=== PATIENT | male | born 2000 | race African-American/Black ===

== ENCOUNTER 2021-01-06 21:50 | Emergency (ER) | payer MEDICAID, SELFPAY ==
[2021-01-06 21:51] VITALS: BP 147/110; PULSE 64; RESP 16; TEMP 36.9; O2SAT 99; BMI 25.8
--- NOTE | 2021-01-06 23:17 | EX.ED.DYSGE1 ---
HPI History of Present Illness Chief Complaint: General Illness Informant: patient Narrative Narrative: 20-year-old male presents the emergency room stating that he does not feel well. Patient states that a few days ago he woke with a sore throat. Last night he went to bed around 0300 hrs. woke at approximately 1130 hrs. He states that he felt very poorly and so he went back to bed until approximately 1730 hrs. He states that he woke up again felt poorly and lay back down. He came to the emergency department. He notes normal bowel movements. No runny nose or cough. He notes some slight abdominal discomfort particularly on the left upper quadrant. He denies any diarrhea or urinary symptoms. No rashes. Patient denies any cough. He does note a headache which she notes is generalized. No light sensitivity or pain in the neck. PFSH PFSH Home Medications NK 01/06/21 [History Last Taken Unknown] Allergy/AdvReac Type Severity Reaction Status Date / Time No Known Allergies Allergy Verified 01/06/21 21:53 Surgical History H/O hand surgery Social History (Updated 01/06/21 @ 23:[address] Winsotn Strange, DO) Smoking Status: Unknown if ever smoked substance use type: does not use ROS ROS ED Constitutional Constitutional ED: Reports chills and sweats; Denies weight loss Eyes Eyes: Denies change in vision or diplopia ENT ENT ED: Denies ear pain, rhinorrhea or sore throat Cardiovascular Cardiovascular: Denies chest pain, orthopnea, palpitations or racing heartbeat Respiratory/Chest Respiratory/Chest: Denies cough, dyspnea or orthopnea Gastrointestinal Gastrointestinal: Reports abdominal pain; Denies diarrhea, nausea or vomiting Genitourinary Genitourinary ED: Denies dysuria, hematuria or urinary frequency Musculoskeletal Musculoskeletal: Denies arthralgias or myalgias Integumentary Denies abscess or rash Neurologic Neurologic: Reports headache(s); Denies weakness Psychiatric Psychiatric: Denies anxiety, depression, suicidal ideation or suicidal thoughts Endocrine Endocrinology: Denies polydipsia, polyphagia or polyuria Allergic/Immunologic Allergic/Immunologic ED: Denies mouth swelling, tongue swelling or urticaria EXAM Physical Exam Const Vital Signs: 01/06/21 21:51 01/06/21 23:32 Temperature 98.5 F Temperature Source Temporal Pulse Rate 64 Respiratory Rate 16 Respiratory Effort Normal Non-Labored Blood Pressure 147/110 H Blood Pressure Mean 122 Pulse Ox 99 Oxygen Delivery Method Room Air Positive well nourished and well developed General Appearance ED: well developed HEENT Reports normocephalic, head/scalp atraumatic and moist mucous membranes Eyes PERRL and EOMs intact bilaterally Neck no lymphadenopathy, supple and no JVD Resp normal respiratory effort and clear to auscultation bilaterally Cardio regular rate, regular rhythm and no murmurs GI normal to inspection, nondistended, normoactive bowel sounds and non-tender Palpation: soft Back/Spine no CVA tenderness and normal ROM Extremity normal to inspection General Extremety ED: Negative for edema General Extremity: Negative for edema Neuro oriented x3 and CN's II-XII intact bilaterally Sensorium / Orientation: alert Motor Exam: strength 5/5 throughout Psych mental status grossly normal Mood & Affect: Negative for depressed or tearful Skin no rashes or lesions noted and no wounds MDM MDM MDM Narrative Medical decision making narrative: White blood cell count 11.4. CMP essentially negative. My interpretation of the chest x-ray is no acute process. Covid test is negative. Patient received a dose of Toradol. Lab Data Attestation: I reviewed the patient's lab results. Labs: Laboratory Results - last 24 hr 01/06/21 01/06/21 23:30 23:30 WBC 11.4 H RBC 5.72 Hgb 17.8 H Hct 52.9 MCV 92.5 MCH 31.1 MCHC 33.6 RDW Std Deviation 41.2 RDW Coeff of [place] 12.0 Plt Count 341 MPV 9.5 Immature Gran % (Auto) 0.400 Neut % (Auto) 63.3 Lymph % (Auto) 26.1 [place] % (Auto) 9.0 Eos % (Auto) 0.8 Baso % (Auto) 0.4 Absolute Neuts (auto) 7.2 Absolute Lymphs (auto) 2.97 Nucleated RBC % 0 Sodium 139 Potassium 3.9 Chloride 107 Carbon Dioxide 30.0 Anion Gap 2 L BUN 11 Creatinine 0.89 Estim Creat Clear Calc 119.48 Est GFR (MDRD) Af Amer 140 Est GFR (MDRD) Non-Af 115 BUN/Creatinine Ratio 12.4 Glucose 86 Calcium 9.5 Total Bilirubin 0.80 AST 25 ALT 50 Alkaline Phosphatase 76 Total Protein 8.3 H Albumin 4.4 Globulin 3.9 Albumin/Globulin Ratio 1.1 Radiography Diagnostic Testing: Radiology Impression Chest X-Ray 01/06/21 23:50 IMPRESSION: Normal x-ray examination of the chest. Electronically Signed: Katy Hope MD at 0:48 EDT Tel , Service support , Discharge Plan Triage Chief Complaint: General Illness ED Provider: Winston Strange Dx/Rx/DC Orders Clinical Impression: Acute viral syndrome Prescriptions: No Action NK RF: 0 Primary Care Provider: Ramos Chowdhury Referrals: Ramos Chowdhury MD [Primary Care Provider] - As Needed Disposition Disposition: Home, Self Care
[2021-01-06 23:37] LABS: Absolute Lymphocyte Count 2.97 X10^3/uL (0.83-4.51); Absolute Neutrophil Count 7.2 X10^3/uL (2.0-7.7); Basophil# 0.05 X10^3/uL; Basophil% 0.4 % (0-1); Eosinophil# 0.09 X10^3/uL; Eosinophils% 0.8 % (0-5); Hematocrit 52.9 % (40-54); Hemoglobin 17.8 g/dL (13.0-16.5); Lymphocyte # 2.97 X10^3/ul (0.83-4.51); Lymphocyte % 26.1 % (19-41); Mean Corp Hgb Conc 33.6 g/dL (32-36); Mean Corpuscular Hgb 31.1 pg (27.0-32.0); Mean Corpuscular Volume 92.5 fL (80-94); Mean Platelet Vol. 9.5 fl (6.2-12.0); Monocyte# 1.03 X10^3/uL; NRBC Flagged by Analyzer 0 % (0-5); Neutrophil % 63.3 % (47-70); Platelet Count 341 K/mm3 (150-450); RBC Distribution Width SD 41.2 fl (35.1-43.9); Red Blood Count 5.72 M/mm3 (4.6-6.2); White Blood Count 11.4 K/mm3 (4.4-11.0)
--- NOTE | 2021-01-06 23:50 | RAD_ITS ---
STUDY: X-RAY CHEST REASON FOR EXAM: Male, 20 years old. dyspnea TECHNIQUE: Single AP portable view of the chest. COMPARISON: None. FINDINGS: The lungs are clear and expanded. There is no demonstrated pleural abnormality. Normal size heart. Normal mediastinum and juno. Normal visualized pulmonary arteries. Normal visualized aortic arch and descending thoracic aorta. Normal visualized thoracic spine. Normal visualized ribs, clavicles, and shoulders. There is no demonstrated abnormality of the visualized soft tissue structures of the upper abdomen. RAD/Chest 1 View (Portable) IMPRESSION: Normal x-ray examination of the chest. Electronically Signed: Katy Hope MD at 0:48 EDT Tel , Service support ,
[2021-01-06 23:54] LABS: ALB/GLOB Ratio 1.1 RATIO (0.9-2.4); AST(SGOT) 25 U/L (15-37); Alanine Aminotransfer ALT/SGPT 50 U/L (16-61); Albumin, Serum 4.4 g/dL (3.2-5.0); Alkaline Phosphatase 76 U/L (45-117); Anion Gap 2 (5-15); BUN 11 mg/dL (7-18); BUN/Creat Ratio 12.4 RATIO (10-20); Calcium,Total 9.5 mg/dL (8.5-10.1); Chloride 107 mmol/L (98-107); Creatinine, Serum 0.89 mg/dL (0.70-1.30); EST Glomerular Filtration Rate 115 mL/min (>60); Est Glom Filt Rate - Afr Amer 140 mL/min (>60); Estimated Creatinine Clearance 119.48 ml/min; Globulin 3.9 g/dL (2.2-4.2); Glucose 86 mg/dL (74-106); Potassium 3.9 mmol/L (3.5-5.1); Protein, Total 8.3 g/dL (6.4-8.2); Sodium Level 139 mmol/L (136-145)
[2021-01-07] MEDS: Ketorolac 30 MG/ML Syringe IV (00:36)
== END 2021-01-07 00:59 | disposition home or self-care (01) ==
PROVIDERS: Emergency Provider Emergency Medicine; PCP Pediatrics
DX: B34.9 Viral infection, unspecified (principal)
CPT/HCPCS: 71045; 80053; 85025; 87426; 96374; 99283; A4216

== ENCOUNTER 2021-02-04 22:46 | Observation (INO) | payer MEDICAID, SELFPAY ==
[2021-02-04 22:46] VITALS: BP 148/81; PULSE 99; RESP 16; TEMP 36.8; O2SAT 98; BMI 25.8
[2021-02-04 23:32] LABS: Absolute Lymphocyte Count 3.77 X10^3/uL (0.83-4.51); Absolute Neutrophil Count 4.1 X10^3/uL (2.0-7.7); Basophil# 0.04 X10^3/uL; Basophil% 0.4 % (0-1); Eosinophil# 0.07 X10^3/uL; Eosinophils% 0.8 % (0-5); Hematocrit 47.1 % (40-54); Hemoglobin 16.2 g/dL (13.0-16.5); Lymphocyte # 3.77 X10^3/ul (0.83-4.51); Lymphocyte % 42.2 % (19-41); Mean Corp Hgb Conc 34.4 g/dL (32-36); Mean Corpuscular Hgb 31.6 pg (27.0-32.0); Mean Platelet Vol. 9.4 fl (6.2-12.0); Monocyte# 0.87 X10^3/uL; Monocyte% 9.7 % (0-10); NRBC Flagged by Analyzer 0 % (0-5); Platelet Count 327 K/mm3 (150-450); Red Blood Count 5.12 M/mm3 (4.6-6.2); White Blood Count 8.9 K/mm3 (4.4-11.0)
[2021-02-04 23:47] LABS: ALB/GLOB Ratio 1.2 RATIO (0.9-2.4); AST(SGOT) 20 U/L (15-37); Alanine Aminotransfer ALT/SGPT 35 U/L (16-61); Albumin, Serum 4.1 g/dL (3.2-5.0); Alkaline Phosphatase 68 U/L (45-117); Anion Gap 7 (5-15); BUN 8 mg/dL (7-18); Calcium,Total 9.1 mg/dL (8.5-10.1); Chloride 106 mmol/L (98-107); Creatinine, Serum 1.14 mg/dL (0.70-1.30); EST Glomerular Filtration Rate 87 mL/min (>60); Est Glom Filt Rate - Afr Amer 105 mL/min (>60); Estimated Creatinine Clearance 93.27 ml/min; Globulin 3.5 g/dL (2.2-4.2); Glucose 106 mg/dL (74-106); Potassium 3.7 mmol/L (3.5-5.1); Protein, Total 7.6 g/dL (6.4-8.2); Sodium Level 143 mmol/L (136-145)
--- NOTE | 2021-02-05 | EDS_ITS ---
HPI History of Present Illness Chief Complaint: Substance Abuse Narrative Narrative: Patient states for the last 4-5 months he has been drinking large amount of alcohol daily and wants to stop, asking for detox. He states he has been drinking about a half a pint of liquor in addition to 5 beers or so daily. He has been working night shifts, so he gets home starts drinking. When he wakes up he sometimes has headaches and feels poorly and starts drinking again. He does not use any other illicit substances except for THC, and he is a heavy smoker. PFSH PFSH Medical History no medical history no medical history Home Medications NK 01/06/21 [History Last Taken Unknown] Allergy/AdvReac Type Severity Reaction Status Date / Time No Known Allergies Allergy Verified 02/04/21 22:49 Family History (Updated 02/05/21 @ 00:[address] Marco Leone MD) Other Alcoholism Heart disease Hypertension Surgical History H/O hand surgery Social History Smoking Status: Current every day smoker alcohol intake: current alcohol intake frequency: 3 or more drinks per day substance use type: does not use ROS ROS ED Constitutional Constitutional ED: Denies chills or fever(s) Eyes Eyes: Denies change in vision or diplopia ENT ENT ED: Denies rhinorrhea or sore throat Cardiovascular Cardiovascular: Denies chest pain or palpitations Respiratory/Chest Respiratory/Chest: Denies cough or dyspnea Gastrointestinal Gastrointestinal: Denies abdominal pain, diarrhea, nausea or vomiting Genitourinary Genitourinary ED: Denies dysuria or hematuria Musculoskeletal Musculoskeletal: Denies back pain or neck pain Integumentary Denies abscess or rash Neurologic Neurologic: Denies headache(s), paresthesias or weakness Psychiatric Psychiatric: Denies anxiety or suicidal thoughts EXAM Physical Exam Const Vital Signs: 02/04/21 22:46 02/05/21 00:12 02/05/21 00:13 Temperature 98.2 F Temperature Source Temporal Pulse Rate 99 88 Respiratory Rate 16 17 Blood Pressure 148/81 H Blood Pressure Mean 103 Pulse Ox 98 Oxygen Delivery Method Room Air Positive well nourished and well developed General Appearance ED: well developed and NAD HEENT Reports moist mucous membranes normocephalic and atraumatic Eyes PERRL and EOMs intact bilaterally Neck full ROM and supple Resp normal respiratory effort and clear to auscultation bilaterally Cardio regular rate, regular rhythm and no murmurs GI non-tender and non-distended Auscultation: normoactive bowel sounds Palpation: soft Back/Spine no CVA tenderness General Back: other FROM Extremity normal to inspection General Extremety ED: Negative for edema, pulses abnormal or tenderness General Extremity: Negative for edema or pulses abnormal Neuro oriented x3, CN's II-XII intact bilaterally and no sensory deficits noted Sensorium / Orientation: awake and alert Motor Exam: strength 5/5 throughout Skin no rashes or lesions noted and no wounds MDM MDM MDM Narrative Medical decision making narrative: Patient medically stable and cleared. Alcohol 61. Not in withdrawal currently. Will discuss with hospitalist for detox program admission. Lab Data Attestation: I reviewed the patient's lab results. Labs: Laboratory Results - last 24 hr 02/04/21 02/04/21 02/04/21 23:15 23:15 23:15 WBC 8.9 RBC 5.12 Hgb 16.2 Hct 47.1 MCV 92.0 MCH 31.6 MCHC 34.4 RDW Std Deviation 41.0 RDW Coeff of [place] 12.0 Plt Count 327 MPV 9.4 Immature Gran % (Auto) 0.900 Neut % (Auto) 46.0 L Lymph % (Auto) 42.2 H [place] % (Auto) 9.7 Eos % (Auto) 0.8 Baso % (Auto) 0.4 Absolute Neuts (auto) 4.1 Absolute Lymphs (auto) 3.77 Nucleated RBC % 0 Sodium 143 Potassium 3.7 Chloride 106 Carbon Dioxide 30.0 Anion Gap 7 BUN 8 Creatinine 1.14 Estim Creat Clear Calc 93.27 Est GFR (MDRD) Af Amer 105 Est GFR (MDRD) Non-Af 87 BUN/Creatinine Ratio 7.0 L Glucose 106 Calcium 9.1 Total Bilirubin 0.50 AST 20 ALT 35 Alkaline Phosphatase 68 Total Protein 7.6 Albumin 4.1 Globulin 3.5 Albumin/Globulin Ratio 1.2 Urine Opiates Screen Urine Methadone Screen Ur Barbiturates Screen Ur Phencyclidine Scrn Ur Amphetamines Screen U Methamphetamin-MDMA U Benzodiazepines Scrn Urine Cocaine Screen U Cannabinoids Screen Ur Drug Screen Comment Ethyl Alcohol 61.0 02/04/21 23:32 WBC RBC Hgb Hct MCV MCH MCHC RDW Std Deviation RDW Coeff of [place] Plt Count MPV Immature Gran % (Auto) Neut % (Auto) Lymph % (Auto) [place] % (Auto) Eos % (Auto) Baso % (Auto) Absolute Neuts (auto) Absolute Lymphs (auto) Nucleated RBC % Sodium Potassium Chloride Carbon Dioxide Anion Gap BUN Creatinine Estim Creat Clear Calc Est GFR (MDRD) Af Amer Est GFR (MDRD) Non-Af BUN/Creatinine Ratio Glucose Calcium Total Bilirubin AST ALT Alkaline Phosphatase Total Protein Albumin Globulin Albumin/Globulin Ratio Urine Opiates Screen NEGATIVE Urine Methadone Screen NEGATIVE Ur Barbiturates Screen NEGATIVE Ur Phencyclidine Scrn NEGATIVE Ur Amphetamines Screen NEGATIVE U Methamphetamin-MDMA NEGATIVE U Benzodiazepines Scrn NEGATIVE Urine Cocaine Screen NEGATIVE U Cannabinoids Screen POSITIVE H Ur Drug Screen Comment Ethyl Alcohol Discharge Plan Dx/Rx/DC Orders Clinical Impression: Alcohol dependence Disposition Disposition: Acute Care Hospital [facility]
--- NOTE | 2021-02-05 00:06 | HP.PCM.HOS_ITS ---
[facility] - General General Date of Admission: 02/05/21 Date of Service: 02/05/21 Chief Complaint: Alcoholism HPI Narrative ADEN KOCH, is a 20 M with a significant history of alcoholism who presents to the emergency department for help with alcohol detoxification. Patient reports drinking since 5 months ago. He drinks daily. He drinks about 4-5 beers; and half a pint of liquor daily. Last time he drank was about 5 to 6 hours prior to presentation. He denied any withdrawal symptoms at the time of presentation. [facility] Medical History no medical history no medical history Home Medications NK 01/06/21 [History Last Taken Unknown] Allergy/AdvReac Type Severity Reaction Status Date / Time No Known Allergies Allergy Verified 02/04/21 22:49 Family History (Updated 02/05/21 @ 00:[address] Marco Leone MD) Other Alcoholism Heart disease Hypertension Surgical History H/O hand surgery Social History Smoking Status: Current every day smoker tobacco type: cigarettes alcohol intake: current alcohol intake frequency: 3 or more drinks per day substance use type: does not use ROS ROS Narrative Constitutional: Denies fever, chills, fatigue, anorexia and change in weight Eyes: Denies blurry vision, change in eye color, change in vision, discharge from eye(s), double vision, erythema, eye pain, loss of vision or other HEENT: Denies abnormal hearing, dysphagia, ear pain, epistaxis, headache(s), hearing loss, nasal congestion, nasal discharge, post nasal drip, sinus pressure, sore throat or other Cardiovascular: Denies chest pain or palpitations. Denies dyspnea on exertion, orthopnea and paroxysmal nocturnal dyspnea Respiratory/Chest: Denies cough, excessive phlegm production, shortness of breath with exertion and wheezing Gastrointestinal: Denies abdominal pain, coffee ground emesis, constipation, benjamin rrhea, dyspepsia, hematemesis, hematochezia, loose stools, melena, nausea, vomiting or other Genitourinary: Denies burning urination, difficulty urinating, dysuria, hematuria, nocturia, urinary frequency, urinary hesitancy, urinary incontinence, urinary urgency or other Musculoskeletal: Denies arthralgias, back pain, joint pain, joint stiffness, joint swelling, myalgias, neck pain or other Neurologic: Denies abnormal gait, abnormal speech, confusion, disequilibrium, dizziness, focal weakness, headache(s), numbness, paresthesias, seizure-like activity, seizures, syncope, tingling, tremor(s) or other Psychiatric: Denies anxiety, depression, homicidal ideation, suicidal ideation or other Endocrinology: Denies change in body appearance, cold intolerance, excessive sweating, heat intolerance, polydipsia, polyuria or other Hematologic/Lymphatic: Denies anemia, easy bleeding, easy bruising, lymphadenopathy or other Integumentary: Denies rashes Allergic/Immunologic: Denies rhinitis, hives, eczema, asthma or other Vital Signs Vital Signs Vital Signs: 02/04/21 22:46 Temperature 98.2 F Temperature Source Temporal Pulse Rate 99 Respiratory Rate 16 Blood Pressure 148/81 H Blood Pressure Mean 103 Pulse Ox 98 Oxygen Delivery Method Room Air Weight Weight: 72.575 kg Body Mass Index (BMI) 25.8 Physical Exam Narrative Physical exam: General: Well-nourished, well-developed. Head: Normocephalic, atraumatic, no tenderness Eyes: PERRLA, EOMI ENT, no trauma, moist mucous membranes, no rhinorrhea Neck: Nontender, full range of motion, no spinal tenderness, deformities, step- off CVS: Regular rate and rhythm. S1-S2 present. No murmur, gallop or rub. Respiratory : clear to auscultation bilaterally, chest wall nontender, no wheezing Abdomen: Soft, nontender, nondistended, normal bowel sounds, no masses : Deferred Back: Nontender, no CVA tenderness, no midline spinal tenderness, deformities, step-offs Extremities: Nontender full range of motion, no trauma Skin: Normal color, no trauma, abrasions Neuro: Alert, oriented, cranial nerves II through XII grossly intact. Psychiatry: Normal mood. Normal affect. Not depressed. Not anxious. Results Lab / Micro Data Result Diagrams: 02/04/21 23:15 02/04/21 23:15 Labs: Laboratory Results - last 24 hr 02/04/21 23:15: WBC 8.9, RBC 5.12, Hgb 16.2, Hct 47.1, MCV 92.0, MCH 31.6, MCHC 34.4, RDW Std Deviation 41.0, RDW Coeff of [place] 12.0, Plt Count 327, MPV 9.4, Immature Gran % (Auto) 0.900, Neut % (Auto) 46.0 L, Lymph % (Auto) 42.2 H, [place] % (Auto) 9.7, Eos % (Auto) 0.8, Baso % (Auto) 0.4, Absolute Neuts (auto) 4.1, Absolute Lymphs (auto) 3.77, Nucleated RBC % 0 02/04/21 23:15: Sodium 143, Potassium 3.7, Chloride 106, Carbon Dioxide 30.0, Anion Gap 7, BUN 8, Creatinine 1.14, Estim Creat Clear Calc 93.27, Est GFR (MDRD) Af Amer 105, Est GFR (MDRD) Non-Af 87, BUN/Creatinine Ratio 7.0 L, Glucose 106, Calcium 9.1, Total Bilirubin 0.50, AST 20, ALT 35, Alkaline Phosphatase 68, Total Protein 7.6, Albumin 4.1, Globulin 3.5, Albumin/Globulin Ratio 1.2 02/04/21 23:15: Ethyl Alcohol 61.0 02/04/21 23:32: Ur Drug Screen Comment Assessment & Plan Assessment/Plan (1) Desire for detoxification: (2) Alcohol dependence: QUALIFIERS: Substance use status: uncomplicated Qualified Code(s): F10.20 - Alcohol dependence, uncomplicated PLAN: The patient is a 20 year old M with a significant history of alcoholism; tobacco abuse and marijuana abuse who presents to the emergency department for help with alcohol detoxification Alcohol dependence and desire for detoxification Review of emergency department labs showed alcohol level of 61. Liver enzymes are unremarkable. Patient will be started on phenobarbital and other adjunctive medications: Gabapentin as needed; dicyclomine as needed; Vistaril as needed; Imodium as needed; trazodone as needed; Zofran as needed; scheduled thiamine; and schedule folic acid. Monitor CIWA score Tobacco abuse Counseled Nicotine patch prescribed. Marijuana abuse Toxicology was positive for cannabinoids. Counselled. DVT prophylaxis Low risk Encourage to ambulate Charges/Coding Visit Charges Inpatient E&M: 14297 Init Hosp L2
[2021-02-05 00:07] LABS: Amphetamine Urine VISTA NEGATIVE (<1000 ng/mL); Barbiturate Urine VISTA NEGATIVE (< 200 ng/mL); Benzodiazepine Urine VISTA NEGATIVE (< 200 ng/mL); Cocaine Urine VISTA NEGATIVE (< 300 ng/mL); Ecstacy Urine VISTA NEGATIVE (< 500 ng/mL); Methadone Urine VISTA NEGATIVE (< 300 ng/mL); PCP Urine VISTA NEGATIVE (< 25 ng/mL); THC Urine VISTA POSITIVE (< 50 ng/mL); Vista UDS pH Range 7
[2021-02-05 00:12] VITALS: RESP 17
[2021-02-05 00:13] VITALS: PULSE 88
[2021-02-05 00:25] VITALS: BP 132/78; PULSE 80; RESP 17; TEMP 36.7; O2SAT 98
[2021-02-05] MEDS: Phenobarbital 32.4 MG Tablet 64.8 MG PO ×6 (01:31→20:39)
[2021-02-05 05:43] VITALS: BMI 25.8
--- NOTE | 2021-02-05 06:56 | PCS.PANDOC ---
PANDEMIC DOCUMENTATION INITIATED: Date: 02/05/2021 Time:
--- NOTE | 2021-02-05 09:42 | ADDICTION ---
This service writer met with PT to conduct ASAM, MSE, AUDIT assessments and to plan for d/c. PT A+Ox4 and participated actively. All assessments completed, faxed to [facility] and placed in PT's chart. PT plans to f/u with individual counselor at [facility] for follow-up counseling services. PT did not indicate a need for transportation post d/c from [facility].
[2021-02-05] MEDS: Thiamine Hydrochloride 100 MG Tablet PO (10:09)
[2021-02-05] MEDS: Folic Acid 1 MG Tablet PO (10:09)
--- NOTE | 2021-02-05 13:36 | PCM.PN.HOSP ---
Subjective Subjective Feeling ok today. Denies any complaints at present. Objective Data Objective Data Vital Signs: Vital Signs Temp Pulse Resp BP Pulse Ox 36.7 C 80 17 132/78 H 98 02/05/21 00:25 02/05/21 00:25 02/05/21 00:25 02/05/21 00:25 02/05/21 00:25 Oxygen Delivery Method Room Air Weight: 72.575 kg Body Mass Index (BMI) 25.8 Lab / Micro Data Result Diagrams: 02/04/21 23:15 02/04/21 23:15 Labs: Laboratory Results - last 24 hr 02/04/21 23:15: WBC 8.9, RBC 5.12, Hgb 16.2, Hct 47.1, MCV 92.0, MCH 31.6, MCHC 34.4, RDW Std Deviation 41.0, RDW Coeff of [place] 12.0, Plt Count 327, MPV 9.4, Immature Gran % (Auto) 0.900, Neut % (Auto) 46.0 L, Lymph % (Auto) 42.2 H, [place] % (Auto) 9.7, Eos % (Auto) 0.8, Baso % (Auto) 0.4, Absolute Neuts (auto) 4.1, Absolute Lymphs (auto) 3.77, Nucleated RBC % 0 02/04/21 23:15: Sodium 143, Potassium 3.7, Chloride 106, Carbon Dioxide 30.0, Anion Gap 7, BUN 8, Creatinine 1.14, Estim Creat Clear Calc 93.27, Est GFR (MDRD) Af Amer 105, Est GFR (MDRD) Non-Af 87, BUN/Creatinine Ratio 7.0 L, Glucose 106, Calcium 9.1, Total Bilirubin 0.50, AST 20, ALT 35, Alkaline Phosphatase 68, Total Protein 7.6, Albumin 4.1, Globulin 3.5, Albumin/Globulin Ratio 1.2 02/04/21 23:15: Ethyl Alcohol 61.0 02/04/21 23:32: Urine Opiates Screen NEGATIVE, Urine Methadone Screen NEGATIVE, Ur Barbiturates Screen NEGATIVE, Ur Phencyclidine Scrn NEGATIVE, Ur Amphetamines Screen NEGATIVE, U Methamphetamin-MDMA NEGATIVE, U Benzodiazepines Scrn NEGATIVE, Urine Cocaine Screen NEGATIVE, U Cannabinoids Screen POSITIVE H, Ur Drug Screen Comment Physical Exam Const alert Constitutional Narrative: in bed. NAD. Resp normal respiratory effort, no retractions and no use of accessory muscles Cardio regular rate, regular rhythm, S1 normal heart sound and S2 normal heart sound GI normal to inspection, nondistended, normoactive bowel sounds, soft to palpation, non-tender and non-distended Assessment & Plan Assessment/Plan (1) Desire for detoxification: (2) Alcohol dependence: QUALIFIERS: Substance use status: uncomplicated Qualified Code(s): F10.20 - Alcohol dependence, uncomplicated PLAN: The patient is a 20 year old M with a significant history of alcoholism; tobacco abuse and marijuana abuse who presents to the emergency department for help with alcohol detoxification 1. Alcohol dependence and desire for detoxification Review of emergency department labs showed alcohol level of 61. Liver enzymes are unremarkable. Patient will be started on phenobarbital and other adjunctive medications: Gabapentin as needed; dicyclomine as needed; Vistaril as needed; Imodium as needed; trazodone as needed; Zofran as needed; scheduled thiamine; and schedule folic acid. Monitor CIWA score Appears well today. If no further events and continues to feel well, could anticipate dischage as soon as 02/06 Pt to follow up with counselor with [facility]. 2. Tobacco abuse Counseled Nicotine patch prescribed. 3. Marijuana abuse Toxicology was positive for cannabinoids. Counselled. 4. DVT prophylaxis Low risk Encourage to ambulate Charges/Coding Procedures Hospitalists Procedures: Other Procedure - See Report (non billable rounding. as pt admitted after midnight. )
--- NOTE | 2021-02-05 14:14 | CHAPLAIN ---
Type of Pastoral Visit _x__ Initial Visit ___ Follow-up Visit ___ On-call Visit ___ General Patient Visit ___ Spiritual Assessment ___ Family Conference ___ Bereavement ___ Rapid Response ___ Code Blue ___ Other (describe below) Pastoral Care Referral From _x__ Patient ___ Family ___ Nurse ___ Physician ___ Thermal Surfacing Machine Operator ___ Executive Search Consultant ___ Other (describe below) Sacrament/Intervention ___ Active listening ___ Anointing ___ Synagogue ___ Bereavement ___ Communion ___ Leanne exploration ___ ___ Life review ___ Prayer ___ Reconciliation ___ Sacrament of Sick _x__ Supportive presence ___ Wedding ___ Other (describe below) Pastoral Comments patient is awake but describes not feeling well enough or clear minded enough to carry on a conversation; pt would welcome a follow up another day
[2021-02-05 16:12] VITALS: BP 143/85; PULSE 64; RESP 16; TEMP 36.8; O2SAT 98
[2021-02-05 20:34] VITALS: BP 127/80; PULSE 63; RESP 16; TEMP 37.3; O2SAT 100
[2021-02-06 01:48] VITALS: BP 105/56; PULSE 70; RESP 16; TEMP 36.3; O2SAT 100
[2021-02-06] MEDS: Phenobarbital 32.4 MG Tablet 64.8 MG PO ×3 (01:51→09:23)
[2021-02-06 05:39] VITALS: BP 138/84; PULSE 64; RESP 16; TEMP 37; O2SAT 100
[2021-02-06] MEDS: Thiamine Hydrochloride 100 MG Tablet PO (09:23)
[2021-02-06] MEDS: Folic Acid 1 MG Tablet PO (09:23)
[2021-02-06 09:28] VITALS: BP 128/79; PULSE 68; RESP 16; TEMP 36.8; O2SAT 98
--- NOTE | 2021-02-06 11:34 | ADDICTION ---
This worker met with PT to discuss discharge and follow-up planning.
--- NOTE | 2021-02-06 12:05 | PCM.DC ---
Discharge Instructions Diet Discharge Diet: No restrictions Activity Discharge Activity: Return to Normal Activity Follow Up Care Please Follow Up With: Barbara When: next week Test Results: Test results from this visit will be discussed in further detail at your follow-up appointment, if applicable. Discharge Plan Admission Admit Date/Time: 02/05/21 00:03 Primary Reason for Your Visit: alcohol withdrawal Attending Provider: Yimi Noonan Primary Care Provider: Ramos Chowdhury Discharge Orders/Prescriptions Prescriptions: New multivitamin Tablet 1 tab PO DAILY Qty: 1 RF: 0 Referrals / Follow Up: Ramos Chowdhury MD [Primary Care Provider] - Disposition Disposition (needs filled in before D/C Order can be placed): Home, Self Care
--- NOTE | 2021-02-06 12:06 | DS.PCM_ITS ---
Providers Date of Admission: 02/05/21 Primary Care Physician: Dr. Ramos Chowdhury MD Reason For Visit: ALCOHOL DETOXIFICATION Diagnosis Discharge Diagnosis (1) Desire for detoxification: Status: Acute (2) Alcohol dependence: Status: Acute Code(s): F10.20 - Alcohol dependence, uncomplicated Qualifiers: Substance use status: uncomplicated Qualified Code(s): F10.20 - Alcohol dependence, uncomplicated Medications at Discharge Home Medications multivitamin 1 tab PO DAILY #1 tab 02/06/21 Hospital Course Operations None Procedures None Summary of Care Provided Minutes Spent on Discharge: 24 Hospital Course: 20-year-old male who drinks beer and liquor presents for acute alcohol detox treatment. Patient was not going through any florid alcohol withdrawal during the course of his hospitalization and has remained stable. Patient was monitored another night and had no further events. Discussed with patient and he is comfortable going home. Plan is for the patient to [facility] Physical Exam Const alert and no apparent distress General Appearance: cooperative and comfortable Weight / BMI Weight Weight: 72.575 kg Body Mass Index (BMI) 25.8 ABG / Lab / Microbiology Data Result Diagrams: 02/04/21 23:15 02/04/21 23:15 D/C Instructions Discharge Diet: No restrictions Please [facility] With[facility] When: next week Meaningful Use Info Meaningful Use Diagnoses (Choose all that apply): None applicable Discharge Plan Admission Admit Date/Time: 02/05/21 00:03 Primary Reason for Your Visit: alcohol withdrawal Attending Provider: Yimi Noonan Primary Care Provider: Ramos Chowdhury Discharge Orders/Prescriptions Prescriptions: New multivitamin Tablet 1 tab PO DAILY Qty: 1 RF: 0 Referrals / Follow Up: Ramos Chowdhury MD [Primary Care Provider] - Disposition Disposition (needs filled in before D/C Order can be placed): Home, Self Care Charges/Coding Visit Charges Inpatient E&M: 73682 Disch Hosp
[2021-02-06 12:35] VITALS: BP 151/77; PULSE 67; RESP 16; TEMP 37; O2SAT 99
== END 2021-02-06 12:40 | disposition home or self-care (01) ==
LOC: ED 02-05 00:03 → MS3 02-05 06:50
PROVIDERS: Admitting Provider Hospitalist; Emergency Provider Emergency Medicine; PCP Pediatrics
DX: F10.20 Alcohol dependence, uncomplicated (principal); F17.210 Nicotine dependence, cigarettes, uncomplicated; Y90.3 Blood alcohol level of 60-79 mg/100 ml; F12.10 Cannabis abuse, uncomplicated
CPT/HCPCS: 80053; 80307; 82077; 85025; 99218; 99283; G0378

== ENCOUNTER 2021-11-13 11:50 | Emergency (ER) | payer OTHER, MEDICAID, SELFPAY ==
--- NOTE | 2021-11-13 11:48 | RAD_ITS ---
STUDY: X-RAY CHEST REASON FOR EXAM: Male, 21 years old. Cough TECHNIQUE: Single AP portable view of the chest. COMPARISON: Comparison is made with prior study dated 01/06/2021. FINDINGS: The lungs are clear and expanded. There is no demonstrated pleural abnormality. Normal size heart. Normal mediastinum and juno. Normal visualized pulmonary arteries. Normal visualized aortic arch and descending thoracic aorta. Normal visualized thoracic spine. Normal visualized ribs, clavicles, and shoulders. There is no demonstrated abnormality of the visualized soft tissue structures of the upper abdomen. RAD/Chest 1 View (Portable) IMPRESSION: Normal x-ray examination of the chest. Electronically Signed: Chance Johnson MD at 14:25 EDT ,
[2021-11-13 11:51] VITALS: BP 134/75; PULSE 109; RESP 18; TEMP 38.8; O2SAT 98; BMI 28.7
--- NOTE | 2021-11-13 13:17 | EX.ED.DYSGE1 ---
HPI History of Present Illness Chief Complaint: General Illness Informant: patient Onset/Context/Timing Onset: Today Context: Sudden Onset Timing: Continuous Quality: Aching Location: Generalized Worsened by: Nothing Relieved by: Nothing Narrative Narrative: Patient presents with body aches that began today. Patient states he woke up around 0400 with generalized body aches. Patient states it began rather suddenly. Patient states nothing makes it better nothing makes it worse. Patient admits to a sore throat and a headache. Patient admits to some subjective chills. Patient denies any cough or shortness of breath. Patient denies any chest pain. Patient states there is a coworker who was recently diagnosed with COVID-19. Prior similar symptoms: No Recent Illness/Hospitalization: No PFSH PFSH Medical History Alcohol abuse Alcohol dependence Home Medications NK 11/13/21 [History Last Taken Unknown] Allergy/AdvReac Type Severity Reaction Status Date / Time No Known Allergies Allergy Verified 11/13/21 11:51 Family History (Updated 02/05/21 @ 00:[address] Marco Leone MD) Other Alcoholism Heart disease Hypertension Surgical History H/O hand surgery Social History Smoking Status: Current every day smoker tobacco type: cigarettes and e-cigarettes alcohol intake: current alcohol intake frequency: 3 or more drinks per day substance use type: does not use ROS ROS ED Constitutional Constitutional ED: Reports chills; Denies fever(s) Eyes Eyes: Denies blurry vision or change in vision ENT ENT ED: Reports sore throat; Denies rhinorrhea Cardiovascular Cardiovascular: Denies chest pain or palpitations Respiratory/Chest Respiratory/Chest: Denies cough or dyspnea Gastrointestinal Gastrointestinal: Denies nausea or vomiting Genitourinary Genitourinary ED: Denies dysuria or hematuria Musculoskeletal Musculoskeletal: Reports back pain and myalgias; Denies neck pain Integumentary Denies abscess or rash Neurologic Neurologic: Reports headache(s); Denies weakness Allergic/Immunologic Allergic/Immunologic ED: Denies mouth swelling or urticaria EXAM Physical Exam Const Vital Signs: 11/13/21 11:51 11/13/21 12:56 11/13/21 13:39 Temperature 101.8 F H Temperature Source Temporal Pulse Rate 109 H 88 Respiratory Rate 18 17 Respiratory Pattern Normal Normal Blood Pressure 134/75 H Blood Pressure Mean 94 Pulse Ox 98 Oxygen Delivery Method Room Air 11/13/21 14:20 Temperature Temperature Source Pulse Rate 95 Respiratory Rate 16 Respiratory Pattern Blood Pressure 124/57 H Blood Pressure Mean 79 Pulse Ox 96 Oxygen Delivery Method Room Air Positive well nourished and well developed General Appearance ED: well developed HEENT Reports moist mucous membranes Neck supple and no JVD Resp normal respiratory effort and clear to auscultation bilaterally Cardio regular rate, regular rhythm and no murmurs GI normal to inspection, nondistended, normoactive bowel sounds and non-tender Palpation: soft Extremity normal to inspection General Extremety ED: Negative for edema or tenderness General Extremity: Negative for edema Neuro oriented x3, CN's II-XII intact bilaterally and no sensory deficits noted Sensorium / Orientation: alert Motor Exam: strength 5/5 throughout Psych mental status grossly normal Skin no rashes or lesions noted MDM MDM MDM Narrative Medical decision making narrative: Patient was given IV fluids. Patient was given Tylenol. Patient was given a DuoNeb aerosol. CBC was within normal limits. Basic metabolic profile shows a mild hypokalemia of 3.2. COVID-19 rapid antigen was obtained and was negative. Influenza A and influenza B swabs were obtained and were negative. Portable 1 view chest x-ray was obtained. On my interpretation, lung delacruz are clear. There is normal cardiac silhouette. Bony thorax is normal. There is no acute process noted. Radiologist also interpreted the x-ray and agrees. Patient was advised of his findings. Patient was advised that this is most likely a viral illness. Patient was instructed to continue Tylenol as needed for any aches or fevers. Patient was instructed to drink plenty of fluids. Patient was instructed to follow-up with his primary care physician in 5 to 7 days. Patient understood and was agreeable with the plan. All questions were answered. Lab Data Attestation: I reviewed the patient's lab results. Labs: Laboratory Results - last 24 hr 11/13/21 11/13/21 13:32 13:32 WBC 9.8 RBC 4.67 Hgb 14.4 Hct 42.2 MCV 90.4 MCH 30.8 MCHC 34.1 RDW Std Deviation 39.2 RDW Coeff of [place] 11.9 Plt Count 293 MPV 9.7 Immature Gran % (Auto) 0.500 Neut % (Auto) 74.3 H Lymph % (Auto) 9.2 L [place] % (Auto) 15.7 H Eos % (Auto) 0.1 Baso % (Auto) 0.2 Absolute Neuts (auto) 7.3 Absolute Lymphs (auto) 0.90 Nucleated RBC % 0 Differential Comment COMMENT Sodium 137 Potassium 3.2 L Chloride 105 Carbon Dioxide 27.0 Anion Gap 5 BUN 9 Creatinine 1.18 Estim Creat Clear Calc 89.36 Est GFR (MDRD) Af Amer 100 Est GFR (MDRD) Non-Af 83 BUN/Creatinine Ratio 7.6 L Glucose 103 Calcium 9.2 Radiography Chest X-Ray - ED: 1 View, Read by ED Physician, Read by Radiologist and Normal Diagnostic Testing: Clinical Impression(s) from Imaging Studies Chest X-Ray 11/13/21 11:48 IMPRESSION: Normal x-ray examination of the chest. Electronically Signed: Chance Johnson MD at 14:25 EDT , Discharge Plan Triage Chief Complaint: General Illness ED Provider: Yimi Leyva Dx/Rx/DC Orders Clinical Impression: Acute viral syndrome, Febrile illness Instructions: ED Viral Syndrome (Adult) Prescriptions: No Action NK Stand Alone Forms: ED Work / School Excuse Primary Care Provider: Ramos Chowdhury Referrals: Ramos Chowdhury MD [Primary Care Provider] - 3-5 Days Disposition Disposition: Home, Self Care
[2021-11-13] MEDS: Acetaminophen 500 MG Tablet 1000 MG PO (13:36)
[2021-11-13] MEDS: 0.9% Normal Saline 1,000 ML 1000 ML IV (13:36)
[2021-11-13] MEDS: Ipratropium/Albuterol Sulfate 3 ML AMPUL.NEB INHALATION (13:37)
[2021-11-13 13:39] VITALS: PULSE 88; RESP 17
[2021-11-13 13:39] LABS: Absolute Neutrophil Count 7.3 X10^3/uL (2.0-7.7); Basophil# 0.02 X10^3/uL; Basophil% 0.2 % (0-1); Eosinophil# 0.01 X10^3/uL; Eosinophils% 0.1 % (0-5); Hematocrit 42.2 % (40-54); Hemoglobin 14.4 g/dL (13.0-16.5); Lymphocyte % 9.2 % (19-41); Mean Corp Hgb Conc 34.1 g/dL (32-36); Mean Corpuscular Hgb 30.8 pg (27.0-32.0); Mean Corpuscular Volume 90.4 fL (80-94); Mean Platelet Vol. 9.7 fl (6.2-12.0); Monocyte# 1.54 X10^3/uL; Monocyte% 15.7 % (0-10); NRBC Flagged by Analyzer 0 % (0-5); Neutrophil # 7.29 X10^3/uL (2.7-7.7); Neutrophil % 74.3 % (47-70); POSITIVE DIFFERENTIAL YES; Platelet Count 293 K/mm3 (150-450); RBC Distribution Width CV 11.9 % (11.6-14.6); RBC Distribution Width SD 39.2 fl (35.1-43.9); Red Blood Count 4.67 M/mm3 (4.6-6.2); White Blood Count 9.8 K/mm3 (4.4-11.0)
[2021-11-13 13:46] LABS: Differential Indicated SCAN CRITERIA MET
[2021-11-13 13:52] LABS: Anion Gap 5 (5-15); BUN 9 mg/dL (7-18); BUN/Creat Ratio 7.6 RATIO (10-20); Calcium,Total 9.2 mg/dL (8.5-10.1); Chloride 105 mmol/L (98-107); Creatinine, Serum 1.18 mg/dL (0.70-1.30); EST Glomerular Filtration Rate 83 mL/min (>60); Est Glom Filt Rate - Afr Amer 100 mL/min (>60); Estimated Creatinine Clearance 89.36 ml/min; Glucose 103 mg/dL (74-106); Potassium 3.2 mmol/L (3.5-5.1); Sodium Level 137 mmol/L (136-145)
[2021-11-13 14:20] VITALS: BP 124/57; PULSE 95; RESP 16; O2SAT 96
[2021-11-13 15:04] VITALS: BP 121/59; PULSE 91; RESP 16; O2SAT 98
== END 2021-11-13 15:06 | disposition home or self-care (01) ==
PROVIDERS: Emergency Provider Emergency Medicine; PCP Pediatrics; Visit Provider Emergency Medicine
DX: B34.9 Viral infection, unspecified (principal); R50.9 Fever, unspecified; F17.210 Nicotine dependence, cigarettes, uncomplicated
CPT/HCPCS: 71045; 80048; 85025; 87428; 94640; 96360; 99283; J7030; A4216

== ENCOUNTER 2022-10-02 17:49 | Emergency (ER) | payer MEDICAID, SELFPAY ==
[2022-10-02 17:50] VITALS: BP 129/82; PULSE 87; RESP 18; TEMP 37.1; O2SAT 98; BMI 28.2
[2022-10-02 20:06] LABS: White Blood Cells 0 SEEN /hpf (0-5)
[2022-10-02 20:07] LABS: Color, Urine Yellow (Yellow); Glucose, Dipstick Normal (Normal); Ketone-Dipstick Negative (Negative); Leukocyte Esterase-Dipstick 25 /ul (Negative); Nitrite-Dipstick Negative (Negative); Occult Blood-Urine Negative /ul (Negative); Protein-Dipstick 30 mg/dl (Negative); Urine Bilirubin Dipstick Negative (Negative); Urine Clarity Clear (Clear); Urine Urobilinogen 1 mg/dl (Normal)
--- NOTE | 2022-10-02 20:10 | EDS_ITS ---
HPI History of Present Illness Chief Complaint: General Illness Narrative Narrative: 22-year-old male who denies significant past medical history presents with nausea vomiting and diarrhea that started today. He states he woke up today and did not feel well. He may have had body aches. He went to work anyway. He states has been drinking water all day. After he got to work, he states he vomited 3 times, and had 2 episodes of diarrhea. He endorses malaise and fatigue. States he feels generally weak and that I am sick. [facility] Medical History Alcohol abuse Alcohol dependence Home Medications NK 11/13/21 [History Last Taken Unknown] Allergy/AdvReac Type Severity Reaction Status Date / Time No Known Allergies Allergy Verified 10/02/22 17:50 Family History Other Alcoholism Heart disease Hypertension Surgical History H/O hand surgery Social History Smoking Status: Current every day smoker tobacco type: cigarettes and e- cigarettes alcohol intake: current alcohol intake frequency: 3 or more drinks per day substance use type: does not use ROS ROS ED ROS Narrative Constitutional: No fever, no chills. HEENT: No sore throat. No neck pain. No loss of vision. No rhinorrhea. Cardiovascular: No chest pain. No palpitations. No pedal edema. Respiratory: No cough, no shortness of breath. Abdominal: No abdominal pain. Nausea, vomiting, diarrhea. Genitourinary: No dysuria. No hematuria. Musculoskeletal: Positive myalgias. No arthralgias. Neurologic: Occasional headaches. No dizziness. No lightheadedness. Skin: No rash. No change in color. Psychiatric: No depression. No anxiety. EXAM Physical Exam Narrative Exam Narrative: Afebrile. Vital signs noted. HEENT: Normocephalic. Atraumatic. PERRL, EOMI. Neck soft and supple. No point tenderness or step off. Cardiovascular: Regular rate and rhythm. No murmurs, rubs, or gallops ap preciated. Respiratory: No tachypnea. Lungs clear to auscultation bilaterally. Gastrointestinal: Abdomen soft, nontender, with normoactive bowel sounds. No rebound or guarding. Neurological: Awake. Alert. Nonfocal, nonlateralizing. Skin: No rash. Normal color. No pallor. Musculoskeletal: No pedal edema. Full range of motion extremities. Const Vital Signs: 10/02/22 17:50 10/02/22 20:12 Temperature 98.8 F Temperature Source Temporal Pulse Rate 87 Respiratory Rate 18 Respiratory Effort Short of Breath Respiratory Pattern Normal Blood Pressure 129/82 H Blood Pressure Mean 97 Pulse Ox 98 Oxygen Delivery Method Room Air MDM MDM MDM Narrative Medical decision making narrative: Reviewed the patient's prior records. She had acute viral syndrome multiple times for which she has been evaluated. I do not feel CT imaging of his abdomen is indicated. Is soft and nontender. He is not tachycardic but he may be intravascularly volume depleted given his reported nausea, vomiting, and diarrhea. He is not currently tachycardic. Comprehensive work-up was pursued. He was bolused normal saline 1 L intravenously. Urinalysis is negative for k etones, negative for infection with negative nitrites. I do not feel that antibiotics are indicated. Protocol laboratories were entered including CBC and CMP. I víctor I reviewed the patient's laboratory work and he has slightly elevated white count of 12.8 which I think may be demargination from his reported vomiting. l also check a lipase given his vomiting. I do feel he probably does have more of a viral syndrome. I reviewed his electrolyte panel which shows a normal BUN of 14 normal creatinine 1.1, AST normal at 23 with ALT 44. Sodium normal at 140 with a normal potassium of 3.7. Urinalysis is negative for infection with 0 WBCs seen. I do not feel antibiotics are indicated. Upon repeat examination he is resting comfortably. He stated he had a headache which I think could be part of his viral syndrome. He was administered Toradol 15 mg intravenously. I do not feel imaging of his abdomen is indicated. I feel he be discharged safely home with follow-up. He was given a note to be off work for today and tomorrow. He will follow-up with his primary care provider. Return instructions were reviewed. Disposition is discharged home in stable condition. History & Record Review Discussion w/independent historian: Patient Additional record(s) reviewed:: Prior ED visit Lab Data Attestation: I reviewed the patient's lab results. Labs: Laboratory Results - last 24 hr 10/02/22 10/02/22 10/02/22 19:55 20:05 20:05 WBC 12.8 H RBC 5.41 Hgb 16.7 H Hct 49.3 MCV 91.1 MCH 30.9 MCHC 33.9 RDW Std Deviation 39.8 RDW Coeff of [place] 11.9 Plt Count 342 MPV 9.5 Immature Gran % (Auto) 0.500 Neut % (Auto) 87.0 H Lymph % (Auto) 5.1 L [place] % (Auto) 6.8 Eos % (Auto) 0.4 Baso % (Auto) 0.2 Absolute Neuts (auto) 11.1 H Absolute Lymphs (auto) 0.65 L Nucleated RBC % 0 Sodium 140 Potassium 3.7 Chloride 104 Carbon Dioxide 29.0 Anion Gap 7 BUN 14 Creatinine 1.11 Estim Creat Clear Calc 97.60 Est GFR (MDRD) Af Amer 106 Est GFR (MDRD) Non-Af 88 BUN/Creatinine Ratio 12.6 Glucose 108 H Calcium 9.5 Total Bilirubin 1.40 H AST 23 ALT 44 Alkaline Phosphatase 78 Total Protein 7.9 Albumin 4.1 Globulin 3.8 Albumin/Globulin Ratio 1.1 Lipase 25 Urine Color Yellow Urine Clarity Clear Urine pH 6.0 Ur Specific [place] 1.010 Urine Protein 30 H Urine Glucose (UA) Normal Urine Ketones Negative Urine Occult Blood Negative Urine Nitrite Negative Urine Bilirubin Negative Urine Urobilinogen 1 H Ur Leukocyte Esterase 25 H Urine RBC 0-5 SEEN Urine WBC 0 SEEN Ur Squamous Epith Cells 0-5 SEEN Urine Bacteria 1+ Urine Mucus 3+ Discharge Plan Triage Chief Complaint: General Illness ED Provider: Addy Borrero Dx/Rx/DC Orders Clinical Impression: Acute viral syndrome, Nausea, vomiting, and diarrhea Instructions: ED Vomiting and Diarrhea ... Prescriptions: No Action NK Stand Alone Forms: ED Work / School Excuse Primary Care Provider: Care Physician,No Primary Referrals: Ramos Chowdhury MD [Non-Staff] - 3-5 Days if not improving Disposition Disposition: Home, Self Care Discharge Date/Time: 10/02/22 21:12
[2022-10-02] MEDS: 0.9% Normal Saline 1,000 ML 999 ML IV (20:12)
[2022-10-02 20:14] LABS: Absolute Lymphocyte Count 0.65 X10^3/uL (0.83-4.51); Absolute Neutrophil Count 11.1 X10^3/uL (2.0-7.7); Basophil# 0.03 X10^3/uL; Basophil% 0.2 % (0-1); Eosinophil# 0.05 X10^3/uL; Eosinophils% 0.4 % (0-5); Hematocrit 49.3 % (40-54); Hemoglobin 16.7 g/dL (13.0-16.5); Lymphocyte # 0.65 X10^3/ul (0.83-4.51); Lymphocyte % 5.1 % (19-41); Mean Corp Hgb Conc 33.9 g/dL (32-36); Mean Corpuscular Hgb 30.9 pg (27.0-32.0); Mean Corpuscular Volume 91.1 fL (80-94); Mean Platelet Vol. 9.5 fl (6.2-12.0); Monocyte# 0.87 X10^3/uL; Monocyte% 6.8 % (0-10); NRBC Flagged by Analyzer 0 % (0-5); Neutrophil # 11.11 X10^3/uL (2.7-7.7); Platelet Count 342 K/mm3 (150-450); RBC Distribution Width CV 11.9 % (11.6-14.6); RBC Distribution Width SD 39.8 fl (35.1-43.9); Red Blood Count 5.41 M/mm3 (4.6-6.2); White Blood Count 12.8 K/mm3 (4.4-11.0)
[2022-10-02 20:15] LABS: Bacteria 1+ /hpf (None Seen); Mucous, Urine 3+ /hpf (<or=2+); Red Blood Cells-Urine 0-5 SEEN /hpf (0-5); Squamous Epithelial Cells - UA 0-5 SEEN /hpf (0-5)
[2022-10-02 20:31] LABS: ALB/GLOB Ratio 1.1 RATIO (0.9-2.4); AST(SGOT) 23 U/L (15-37); Alanine Aminotransfer ALT/SGPT 44 U/L (16-61); Albumin, Serum 4.1 g/dL (3.2-5.0); Alkaline Phosphatase 78 U/L (45-117); Anion Gap 7 (5-15); BUN 14 mg/dL (7-18); BUN/Creat Ratio 12.6 RATIO (10-20); Calcium,Total 9.5 mg/dL (8.5-10.1); Chloride 104 mmol/L (98-107); Creatinine, Serum 1.11 mg/dL (0.70-1.30); EST Glomerular Filtration Rate 88 mL/min (>60); Est Glom Filt Rate - Afr Amer 106 mL/min (>60); Globulin 3.8 g/dL (2.2-4.2); Glucose 108 mg/dL (74-106); Lipase 25 U/L (13-75); Potassium 3.7 mmol/L (3.5-5.1); Protein, Total 7.9 g/dL (6.4-8.2); Sodium Level 140 mmol/L (136-145)
[2022-10-02] MEDS: Ketorolac 15 MG/ML Vial IV (21:04)
== END 2022-10-02 21:12 | disposition home or self-care (01) ==
PROVIDERS: Emergency Provider Emergency Medicine; Visit Provider Emergency Medicine
DX: B34.9 Viral infection, unspecified (principal); R11.2 Nausea with vomiting, unspecified; R19.7 Diarrhea, unspecified; F17.210 Nicotine dependence, cigarettes, uncomplicated
CPT/HCPCS: 80053; 81001; 83690; 85025; 96374; 99283; J7030; A4216

== ENCOUNTER 2024-03-04 07:22 | Inpatient (IN) | payer MEDICAID, SELFPAY ==
[2024-03-04 07:23] VITALS: BP 152/85; PULSE 132; RESP 18; TEMP 36.7; O2SAT 95; BMI 27.7
--- NOTE | 2024-03-04 07:33 | EX.ED.SAOD ---
HPI History of Present Illness Chief Complaint: Substance Abuse Informant: patient Onset/Context/Timing Onset: Month(s) Context: Gradual Onset Timing: Continuous Current Severity: Moderate Maximum Severity: Moderate Narrative Narrative: 23-year-old male history of alcohol abuse says he drinks both beer and hard liquor at least 10 beverages per day. Last drink earlier this morning when the bar closed. Last detox was around 2 years ago. Says he occasionally does cocaine also. He snorts it. He denies any IV drug use. States he just wants to get his life back in order. Prior similar symptoms: Yes Recent Illness/Hospitalization: No PFSH COUNT INCLUDES THE [facility] Medical History Alcohol abuse Alcohol dependence Home Medications ?Medication ?Instructions ?Recorded ?Last Taken ?Type NK 11/13/21 Unknown History Allergy/AdvReac Type Severity Reaction Status Date / Time No Known Allergies Allergy Verified 03/04/24 07:27 Family History Other Alcoholism Heart disease Hypertension Surgical History H/O hand surgery Social History Smoking Status: Current every day smoker tobacco type: cigarettes and e-cigarettes alcohol intake: current alcohol intake frequency: 3 or more drinks per day substance use type: does not use ROS ROS ED ROS Narrative Denies recent illness. Constitutional Constitutional ED: Denies chills or fever(s) Eyes Eyes: Denies blurry vision ENT ENT ED: Denies ear pain Cardiovascular Cardiovascular: Denies chest pain Respiratory/Chest Respiratory/Chest: Denies cough or dyspnea Gastrointestinal Gastrointestinal: Denies abdominal pain Genitourinary Genitourinary ED: Denies dysuria Musculoskeletal Musculoskeletal: Denies arthralgias Integumentary Denies abscess Neurologic Neurologic: Denies headache(s) Psychiatric Psychiatric: Reports anxiety Endocrine Endocrinology: Denies cold intolerance Hematologic/Lymphatic Hematologic/Lymphatic: Denies easy bleeding Allergic/Immunologic Allergic/Immunologic ED: Denies mouth swelling EXAM Physical Exam Narrative Exam Narrative: [id number] male sitting upright in bed. Vital signs are stable he is tachycardic. He does not look septic or toxic. No one else is present in the room. H EENT exam pupils round reactive light. No trauma. Mildly dry mucous membranes. Neck nontender. No trauma. No lymphadenopathy. Lungs clear to auscultation bilaterally. Heart tachycardic rate about 120. Chest wall ribs nontender. Abdomen soft nontender. Back nontender. Moving all 4 extremities. Nontender. No edema. He is awake and alert. No focal motor deficits. Appears to be mildly anxious. Const Vital Signs: 03/04/24 07:23 03/04/24 07:54 Temperature 98.1 F 98.6 F Temperature Source Oral Pulse Rate 132 H 118 H Respiratory Rate 18 20 H Blood Pressure 152/85 H 150/83 H Blood Pressure Mean 107 105 Pulse Ox 95 96 Oxygen Delivery Method Room Air Positive well nourished and well developed General Appearance ED: well developed and NAD; Negative for pallor HEENT Reports dry mucous membranes atraumatic; Negative for trauma or tenderness Mouth ED: Yes dry mucous membranes Mouth: dry mucous membranes Eyes PERRL and EOMs intact bilaterally General Eye ED: Negative for pale conjunctiva or scleral icterus Neck no lymphadenopathy, supple and no JVD Thyroid: Negative for tender Lymph Lymphatic: no lymphadenopathy noted Chest Wall inspection of chest normal and palpation of chest normal Resp normal respiratory effort and clear to auscultation bilaterally Auscultation: Negative for rales, rhonchi, wheezes or diminished lung sounds Cardio regular rhythm, S1 normal heart sound, S2 normal heart sound and no murmurs; Negative for regular rate Rate: tachycardic GI soft to palpation, non-tender, non-distended and no masses Inspection: Negative for abdominal distention Palpation: Negative for tender, guarding or rigid Back/Spine no CVA tenderness General Back: Negative for CVA tenderness Cervical Spine: Negative for cervical spine tenderness Thoracic Spine / Upper Back: Negative for thoracic spinal tenderness Lumbar Spine / Lower Back: Negative for lumbar spinal tenderness Coccyx: Negative for swelling Extremity General Extremety ED: Negative for edema or tenderness General Extremity: Negative for edema Neuro oriented x3 and CN's II-XII intact bilaterally Sensorium / Orientation: alert, oriented to person and oriented to place; Negative for oriented to time, confused, lethargic or stuporous Speech: speech normal Motor Exam: strength 5/5 throughout Psych mental status grossly normal and thought process normal Attitude: No belligerent, No agitated, No aggressive and No hostile Mood & Affect: anxious Skin General Skin Exam: Negative for jaundice or pallor Lesions: no lesions Rashes: no rashes MDM MDM MDM Narrative Medical decision making narrative: 23-year-old male history of alcohol abuse and occasional cocaine use. Requesting detox. Hospitalist is on page for admission. I did obtain screening labs which are pending. Patient doing well at 8:38 AM. Labs have returned he will be admitted to [facility] for detox. Have already spoken to the hospitalist. History & Record Review Discussion w/independent historian: Patient Additional record(s) reviewed:: Prior inpatient record, Prior outpatient record, Prior ED visit and Prior labs Lab Data Attestation: I reviewed the patient's lab results. Lab results narrative: CBC shows a white count 9.2. H&H 15 and 46. Platelets 293. Chemistries show potassium of 3.0. Gap 4. Normal BUN of 10 and creatinine of 1. Liver enzymes are unremarkable. Glucose 128. Alcohol elevated at 175. Urine tox screen positive for cocaine and cannabis. Labs: Laboratory Results - last 24 hr 03/04/24 03/04/24 07:43 07:55 WBC 11.2 H RBC 4.99 Hgb 15.6 Hct 46.2 MCV 92.6 MCH 31.3 MCHC 33.8 RDW Std Deviation 44.0 H RDW Coeff of [place] 13.0 Plt Count 293 MPV 10.0 Immature Gran % (Auto) 0.500 Neut % (Auto) 61.0 Lymph % (Auto) 28.2 [place] % (Auto) 9.7 Eos % (Auto) 0.3 Baso % (Auto) 0.3 Absolute Neuts (auto) 6.8 Absolute Lymphs (auto) 3.16 Nucleated RBC % 0 Sodium 142 Potassium 3.0 L Chloride 111 H Carbon Dioxide 27.0 Anion Gap 4 L BUN 10 Creatinine 1.07 Estim Creat Clear Calc 109.00 Est GFR (MDRD) Af Amer 109 Est GFR (MDRD) Non-Af 90 BUN/Creatinine Ratio 9.3 L Glucose 120 H Calcium 8.4 L Phosphorus 2.9 Magnesium 2.3 Total Bilirubin 0.70 AST 32 ALT 49 Alkaline Phosphatase 88 Total Protein 7.0 Albumin 3.8 Globulin 3.2 Albumin/Globulin Ratio 1.2 Urine Opiates Screen NEGATIVE Urine Methadone Screen NEGATIVE Ur Barbiturates Screen NEGATIVE Ur Phencyclidine Scrn NEGATIVE Ur Amphetamines Screen NEGATIVE MDMA (Ecstasy) Screen NEGATIVE U Benzodiazepines Scrn NEGATIVE Urine Cocaine Screen POSITIVE H U Cannabinoids Screen POSITIVE H Ur Drug Screen Comment Ethyl Alcohol 175.0 Discharge Plan Dx/Rx/DC Orders Clinical Impression: Alcohol abuse, Admitted to alcohol detoxification center, Cocaine use, Acute alcohol intoxication Disposition Disposition: Acute Care Hospital [facility]
--- NOTE | 2024-03-04 07:41 | PCM.HP.STD ---
HPI - General General Date of Admission: 03/04/24 Date of Service: 03/04/24 Chief Complaint: Alcohol Abuse with pending withdrawal HPI Narrative ADEN KOCH, is a 23 M who presented to the emergency department at [facility] on 03/04/2024 early in the morning requesting detox from alcohol. Patient states he has had several years of alcohol abuse with his last detox being in 2020. He has had no significant periods of sobriety. He reported he drinks both beer and hard liquor and has at least 10 beverages a day. His last drink was early on the morning of admission when the bar closed. He also admitted he was partying and was using other substances including cocaine and marijuana. He denies any other substance abuse. He does admit to tobacco abuse and states he smokes about 27 cigarettes daily. He did admit that he does occasionally use cocaine intranasally but denies any previous IV drug use. On presentation he indicated he just wants to get his life back in order. On my evaluation he was quite sleepy as it appeared he had been up all night but was appropriate and appreciative of care. Vital signs on presentation showed a temperature of 98.1, heart rate 132, blood pressure 152/85 and pulse ox was 95% on room air. CBC showed a white count of 12.2 with no left shift and was otherwise unremarkable. Chemistry panel was consistent with some mild dehydration. Sodium is normal. Potassium was 3.0 and glucose was 120. Liver enzymes were normal. Magnesium and phosphorus were within normal limits. Urine talk screen was positive for cocaine and cannabis. Serum alcohol was 175. He will be admitted to the medical floor for alcohol detox. [facility] Medical History (Updated 03/04/24 @ 12:[address] Sandy Ferrer DO) Marijuana use Ankle sprain Tobacco abuse Alcohol abuse Alcohol dependence Home Medications ?Medication ?Instructions ?Recorded ?Last Taken ?Type NK 11/13/21 Unknown History Allergy/AdvReac Type Severity Reaction Status Date / Time No Known Allergies Allergy Verified 03/04/24 07:27 Family History Other Alcoholism Heart disease Hypertension Surgical History H/O hand surgery Social History (Updated 03/04/24 @ 12:[address] Sandy Nabil, DO) Smoking Status: Current every day smoker tobacco type: cigarettes and e-cigarettes alcohol intake: current alcohol intake frequency: 3 or more drinks per day substance use type: marijuana and crack/cocaine Vital Signs Vital Signs Vital Signs: 03/04/24 07:23 Temperature 98.1 F Temperature Source Oral Pulse Rate 132 H Respiratory Rate 18 Blood Pressure 152/85 H Blood Pressure Mean 107 Pulse Ox 95 Oxygen Delivery Method Room Air Weight Weight: 80.286 kg Body Mass Index (BMI) 27.7 Physical Exam Const alert, oriented x3, no apparent distress, average body habitus and well nourished Constitutional Narrative: Sleepy but interactive and arousable/appropriate, young -[place] male, sitting up in bed, currently appears comfortable, does not appear toxic at this time General Appearance: cooperative HEENT normocephalic, head/scalp atraumatic and hearing grossly normal bilaterally HEENT Narrative: Mallampati 3 Eyes PERRL, EOMs intact bilaterally and conjunctivae normal Eyes Narrative: Eyes are bloodshot, no scleral icterus Resp normal respiratory effort, no retractions, no use of accessory muscles and clear to auscultation bilaterally Auscultation: Negative for rales, rhonchi or wheezes Cardio regular rhythm, S1 normal heart sound, S2 normal heart sound, no murmurs, no rub, no gallops and no clicks; Negative for regular rate Cardio Narrative: Tachycardic GI normal to inspection, nondistended, normoactive bowel sounds, soft to palpation and non-tender Extremity no clubbing, cyanosis or edema Extremity Narrative: Pedal and radial pulses are 2+ Neuro oriented x3, moves all extremities and no focal motor deficits Speech: speech normal Psych Psych Narrative: Affect is flattened patient seems very fatigued Results Lab / Micro Data 03/04/24 07:43 03/04/24 07:43 Assessment & Plan Assessment/Plan (1) Cocaine use: (2) Admitted to alcohol detoxification center: (3) Alcohol abuse: (4) Tachycardia: (5) Hypokalemia: PLAN: Plan Alcohol intoxication with pending withdrawal and request for detox -Patient states he drinks about 10 drinks of alcohol and hard liquor daily -Last detox was in 2020 and patient has not had any prolonged sobriety -Last drink prior to presentation was early this morning when the bar is closed -Blood alcohol level on presentation was 175 -Start phenobarbital taper -Thiamine and folate -Patient does appear to be somewhat dehydrated so we will give 1 L of LR -Supportive medication for withdrawal symptoms -180 consultation for assistance with discharge planning -Case management/social work consultation Hypokalemia -40 mill equivalents p.o. potassium given -Will recheck in a.m. -Mag and Phos are within normal limits Tachycardia -Likely related to acute withdrawal -Monitor Polysubstance abuse -UDS positive for cocaine and marijuana both of which patient admits to -Recommend cessation Multiple -Low risk -encourage early and frequent ambulation CODE STATUS -Full code Charges/Coding Visit Charges Inpatient E&M: 27296 Init Hosp L2
--- NOTE | 2024-03-04 07:42 | NURSING ---
DR MATTHEW BARBOZA
[2024-03-04 07:54] VITALS: BP 150/83; PULSE 118; RESP 20; TEMP 37; O2SAT 96
[2024-03-04 07:59] LABS: Absolute Lymphocyte Count 3.16 X10^3/uL (0.83-4.51); Absolute Neutrophil Count 6.8 X10^3/uL (2.0-7.7); Basophil# 0.03 X10^3/uL; Basophil% 0.3 % (0-1); Eosinophil# 0.03 X10^3/uL; Eosinophils% 0.3 % (0-5); Hematocrit 46.2 % (40-54); Hemoglobin 15.6 g/dL (13.0-16.5); Lymphocyte # 3.16 X10^3/ul (0.83-4.51); Lymphocyte % 28.2 % (19-41); Mean Corp Hgb Conc 33.8 g/dL (32-36); Mean Corpuscular Hgb 31.3 pg (27.0-32.0); Mean Corpuscular Volume 92.6 fL (80-94); Monocyte# 1.09 X10^3/uL; Monocyte% 9.7 % (0-10); NRBC Flagged by Analyzer 0 % (0-5); Neutrophil # 6.84 X10^3/uL (2.7-7.7); Platelet Count 293 K/mm3 (150-450); Red Blood Count 4.99 M/mm3 (4.6-6.2); White Blood Count 11.2 K/mm3 (4.4-11.0)
[2024-03-04 08:27] LABS: Phosphorus 2.9 mg/dL (2.5-4.9)
[2024-03-04 08:31] LABS: Amphetamine Urine VISTA NEGATIVE (<1000 ng/mL); Barbiturate Urine VISTA NEGATIVE (< 200 ng/mL); Benzodiazepine Urine VISTA NEGATIVE (< 200 ng/mL); Cocaine Urine VISTA POSITIVE (< 300 ng/mL); Ecstacy Urine VISTA NEGATIVE (< 500 ng/mL); Methadone Urine VISTA NEGATIVE (< 300 ng/mL); PCP Urine VISTA NEGATIVE (< 25 ng/mL); THC Urine VISTA POSITIVE (< 50 ng/mL); Vista UDS pH Range 5
[2024-03-04 08:34] LABS: ALB/GLOB Ratio 1.2 RATIO (0.9-2.4); AST(SGOT) 32 U/L (15-37); Alanine Aminotransfer ALT/SGPT 49 U/L (16-61); Albumin, Serum 3.8 g/dL (3.2-5.0); Alkaline Phosphatase 88 U/L (45-117); Anion Gap 4 (5-15); BUN 10 mg/dL (7-18); BUN/Creat Ratio 9.3 RATIO (10-20); Calcium,Total 8.4 mg/dL (8.5-10.1); Chloride 111 mmol/L (98-107); Creatinine, Serum 1.07 mg/dL (0.70-1.30); EST Glomerular Filtration Rate 90 mL/min (>60); Est Glom Filt Rate - Afr Amer 109 mL/min (>60); Globulin 3.2 g/dL (2.2-4.2); Glucose 120 mg/dL (74-106); Magnesium 2.3 mg/dL (1.6-2.6); Sodium Level 142 mmol/L (136-145)
--- NOTE | 2024-03-04 08:41 | NURSING ---
MED SURG MATTHEW ETOH ABUSE, DETOX
[2024-03-04 09:24] VITALS: BMI 27.7
[2024-03-04 09:30] VITALS: BP 121/68; PULSE 100; RESP 18; TEMP 37.1; O2SAT 98
[2024-03-04] MEDS: Phenobarbital 32.4 MG Tablet 97.2 MG PO ×2 (10:02→14:28)
[2024-03-04] MEDS: Lactated Ringers 1,000 ML 100 ML IV (10:03)
--- NOTE | 2024-03-04 16:25 | NURSING ---
This nurse into room, found IV removed and lying on floor with patient gown. All of patient's belongings removed from tote and patient had left unit. aware.
--- NOTE | 2024-03-04 16:32 | PCM.HOSP.N ---
Hospitalist Note Called by nursing. She stated she went to lunch and came back and the patient was gone with his IV on the ground. He apparently eloped.
== END 2024-03-04 16:25 | disposition left against medical advice (07) | DRG 770 ==
LOC: ED 07:47 → MS3 08:56
PROVIDERS: Admitting Provider Internal Medicine; Emergency Provider Emergency Medicine; Visit Provider Internal Medicine
DX: F10.129 Alcohol abuse with intoxication, unspecified (principal); E87.6 Hypokalemia; F14.90 Cocaine use, unspecified, uncomplicated; F17.210 Nicotine dependence, cigarettes, uncomplicated; Y90.6 Blood alcohol level of 120-199 mg/100 ml
CPT/HCPCS: 80053; 80307; 82077; 83735; 84100; 85025; 99283; J7120; A4216

== ENCOUNTER 2024-05-06 16:35 | Emergency (ER) | payer MEDICAID, SELFPAY ==
[2024-05-06 16:35] VITALS: BP 123/74; PULSE 79; RESP 16; TEMP 35.8; O2SAT 97
[2024-05-06 21:23] VITALS: BP 106/58; PULSE 82; RESP 16; TEMP 36.7; O2SAT 99
[2024-05-06 21:27] VITALS: BMI 29.2
--- NOTE | 2024-05-06 21:39 | ED.VIS.BACK ---
HPI History of Present Illness Chief Complaint: Back Informant: patient Onset/Context/Timing Onset: Today Context: Sudden Onset Injury: - (Running while playing basketball) Timing: Continuous Quality: Sharp Location: Lumbar Worsened by: improves with Movement Relieved by: - (Applying pressure to his low back) Associated Symptoms Associated Symptoms: Negative for Numbness, Tingling, Radiation to Right Leg, Radiation to Left Leg, Fever, Abdominal Pain, Dysuria, Unable to Ambulate, Unable to Transfer, Urinary Retention, Urinary Incontinence, Constipation or Fecal Incontinence Narrative Narrative: Patient presents with low back pain that began today while playing basketball. Patient states he was running when he felt pain in his back. Patient states it has been constant. Patient describes the pain as sharp and stabbing. Patient states it is better when he applies pressure to his low back. Patient denies any radiation of the pain. Patient denies any paresthesias or weakness. Patient denies any direct trauma. Patient denies any bowel or bladder changes. Patient denies any saddle anesthesia. [facility] Medical History Marijuana use Ankle sprain Tobacco abuse Alcohol abuse Alcohol dependence Home Medications ?Medication ?Instructions ?Recorded ?Last Taken ?Type cyclobenzaprine 10 mg tablet 10 mg PO QHS PRN PRN Muscle Spasm 05/06/24 Unknown Rx #10 TABLETS naproxen 500 mg tablet 500 mg PO BID PRN #20 tabs 05/06/24 Unknown Rx Allergy/AdvReac Type Severity Reaction Status Date / Time No Known Allergies Allergy Verified 05/06/24 16:35 Family History Other Alcoholism Heart disease Hypertension Surgical History H/O hand surgery Social History Smoking Status: Current every day smoker tobacco type: cigarettes and e-cigarettes alcohol intake: current alcohol intake frequency: 3 or more drinks per day substance use type: marijuana and crack/cocaine ROS ROS ED Constitutional Constitutional ED: Denies chills or fever(s) Eyes Eyes: Denies blurry vision or change in vision ENT ENT ED: Denies rhinorrhea or sore throat Cardiovascular Cardiovascular: Denies chest pain or palpitations Respiratory/Chest Respiratory/Chest: Denies cough or dyspnea Gastrointestinal Gastrointestinal: Denies nausea or vomiting Genitourinary Genitourinary ED: Denies dysuria or hematuria Musculoskeletal Musculoskeletal: Reports back pain; Denies neck pain Integumentary Denies abscess or rash Neurologic Neurologic: Denies headache(s) or weakness Allergic/Immunologic Allergic/Immunologic ED: Denies mouth swelling or urticaria EXAM Physical Exam Const Vital Signs: 05/06/24 16:35 05/06/24 21:23 Temperature 96.4 F L 98.1 F Temperature Source Temporal Oral Pulse Rate 79 82 Respiratory Rate 16 16 Blood Pressure 123/74 H 106/58 L Blood Pressure Mean 90 74 Pulse Ox 97 99 Oxygen Delivery Method Room Air Room Air Positive well nourished and well developed General Appearance ED: well developed and NAD HEENT Reports moist mucous membranes Neck supple and no JVD Back/Spine Back/Spine Narrative: There is tenderness over the left lumbar paraspinal muscles. There is no midline tenderness. There is no bony crepitance or step-off noted. Range of motion was limited in all motions of the lumbar spine secondary to pain. Straight leg raises were negative bilaterally. Strength is 5/5 bilaterally in the lower extremities. There are no sensory deficits noted. Deep tendon reflexes are 2/4 bilaterally in the lower extremities. Extremity normal to inspection General Extremety ED: Negative for edema or tenderness General Extremity: Negative for edema Neuro oriented x3 and no sensory deficits noted Sensorium / Orientation: alert Motor Exam: strength 5/5 throughout Deep Tendon Reflexes: Rt Patellar (L4): 2+, Lt Patellar (L4): 2+, Rt Ankle (S1): 2+ and Lt Ankle (S1): 2+ Deep Tendon Reflexes Back: Rt Patellar (L4): 2+, Lt Patellar (L4): 2+, Rt Ankle (S1): 2+ and Lt Ankle (S1): 2+ Psych mental status grossly normal MDM MDM MDM Narrative Medical decision making narrative: Nicotine cessation was discussed. Patient was advised that this is most likely a muscular strain. Patient was given a prescription for Naprosyn and Flexeril. Patient was instructed to use ice to the area. Patient was instructed to follow-up with his primary care physician in 5 to 7 days. Patient understood and was agreeable with the plan. All questions were answered. Discharge Plan Triage Chief Complaint: Back ED Provider: Yimi Leyva Dx/Rx/DC Orders Clinical Impression: Acute lumbosacral myofascial strain, Nicotine vapor product user Instructions: ED Back Sprain/Strain Prescriptions: New cyclobenzaprine 10 mg tablet 10 mg PO QHS PRN PRN (Reason: Muscle Spasm) Qty: 10 0RF naproxen 500 mg tablet 500 mg PO BID PRN Qty: 20 0RF Primary Care Provider: Care Physician,No Primary Referrals: Miah Luque MD [Med Staff - Active Staff] - 5-7 Days Care Physician,No Primary [Primary Care Provider] - Print Language: Guatemalan Disposition Disposition: Home, Self Care
[2024-05-06] MEDS: Naproxen 500 MG Tablet PO (21:59)
== END 2024-05-06 22:02 | disposition home or self-care (01) ==
PROVIDERS: Emergency Provider Emergency Medicine; Visit Provider Emergency Medicine
DX: S39.012A Strain of muscle, fascia and tendon of lower back, initial encounter (principal); X58.XXXA Exposure to other specified factors, initial encounter; Y93.67 Activity, basketball; F17.210 Nicotine dependence, cigarettes, uncomplicated; F17.290 Nicotine dependence, other tobacco product, uncomplicated
CPT/HCPCS: 99282